=== PATIENT | female | born 1980 ===

== ENCOUNTER 2017-05-03 09:30 | Day surgery (SDC) | payer MEDICAID ==
[2017-05-03 10:31] VITALS: BMI 25.0
[2017-05-03 10:39] VITALS: TEMP 98.9; O2SAT 100
[2017-05-03] MEDS ORDERED: Propofol 10 mg/ml Inj (20 ML) ONE (12:20)
[2017-05-03 13:48] VITALS: BP 129/77; PULSE 89; RESP 16
== END 2017-05-03 13:45 | disposition home or self-care (01) ==
LOC: C.ENDO 09:30
PROVIDERS: ATTEND Internal Medicine
DX: K29.70 Gastritis, unspecified, without bleeding (principal); R10.13 Epigastric pain; K44.9 Diaphragmatic hernia without obstruction or gangrene
CPT/HCPCS: 43239; 84703; 88305; 88313; 88342; J2704